=== PATIENT | female | born 1965 | race Caucasian/White ===

== ENCOUNTER → 2016-03-22 | Outpatient (CLI) | payer BC ==
--- NOTE | 2016-03-22 16:32 | REP ---
LEFT KNEE, SIX VIEWS: HISTORY: Injury. There is no acute fracture or dislocation. There is narrowing of the joint spaces. A calcified density is present adjacent to the lateral femoral condyle. This represents ligamentous or tendon calcification. IMPRESSION: Degenerative change as described above. Signed by Jose Cheung MD 03/22/2016 04:40 P
== END ==
LOC: M LRY 14:41
PROVIDERS: ATTEND Physician Assistant
DX: S89.92XA Unspecified injury of left lower leg, initial encounter (principal); X58.XXXA Exposure to other specified factors, initial encounter; Y92.89 Other specified places as the place of occurrence of the external cause; Y93.89 Activity, other specified; Y99.8 Other external cause status

== ENCOUNTER → 2018-03-17 | Outpatient (REF) ==
[2018-03-18 10:08] LABS: RUBELLA IgG QUALITATIVE IMMUNE (IMMUNE)
[2018-03-18 10:17] LABS: RUBEOLA IgG ANTIBODY 26.7 AU/mL (Immune >29.9)
== END ==
LOC: M LAB 11:29
PROVIDERS: ATTEND Nurse Practitioner Adult Health
DX: Z00.00 Encounter for general adult medical examination without abnormal findings (principal)